=== PATIENT | female | born 1990 | race Caucasian/White ===

== ENCOUNTER 2020-01-09 05:26 | Emergency (ER) | payer OTHER, MEDICAID ==
[~2020-01-09] VITALS: Ht 162.6 cm; Wt 81.6 kg
[2020-01-09 05:39] VITALS: Ht 162.6 cm; Wt 81.6 kg
[2020-01-09 09:00] VITALS: BP 109/67
== END 2020-01-09 12:45 | disposition home or self-care (01) ==
LOC: ED 05:26
DX: S09.8XXA Other specified injuries of head, initial encounter (principal); S39.91XA Unspecified injury of abdomen, initial encounter; S13.4XXA Sprain of ligaments of cervical spine, initial encounter; M25.562 Pain in left knee; M25.572 Pain in left ankle and joints of left foot; N83.201 Unspecified ovarian cyst, right side; V49.49XA Driver injured in collision with other motor vehicles in traffic accident, initial encounter; Y93.I9 Activity, other involving external motion; Y92.413 State road as the place of occurrence of the external cause; Y99.8 Other external cause status
CPT/HCPCS: J2270; J2405; Q0092; Q9967